=== PATIENT | male | born 1980 ===

== ENCOUNTER 2017-06-13 09:17 | Day surgery (SDC) | payer OTHER ==
[2017-06-13 09:45] VITALS: BMI 33.2
[2017-06-13] MEDS ORDERED: Propofol 10 mg/ml Inj (20 ML) ONE (12:38)
[2017-06-13] MEDS ORDERED: Midazolam 2 MG/2 ML VIAL ONE (12:38)
[2017-06-13 13:09] VITALS: TEMP 97.7
[2017-06-13 13:34] VITALS: RESP 13; O2SAT 99
[2017-06-13 13:39] VITALS: BP 131/74; PULSE 76
== END 2017-06-13 13:38 | disposition home or self-care (01) ==
LOC: C.ENDO 09:17
PROVIDERS: ATTEND Internal Medicine Gastroenterology
DX: K29.50 Unspecified chronic gastritis without bleeding (principal); K25.9 Gastric ulcer, unspecified as acute or chronic, without hemorrhage or perforation; K31.9 Disease of stomach and duodenum, unspecified; K21.9 Gastro-esophageal reflux disease without esophagitis; E66.9 Obesity, unspecified
CPT/HCPCS: 43239; 88305; 88312; 88342; J2250; J2704

== ENCOUNTER 2017-11-07 21:17 | Emergency (ER) | payer OTHER ==
[2017-11-07 21:18] VITALS: BMI 33.2
[2017-11-07] MEDS ORDERED: Sodium Chloride 0.9% 1,000 ML IV ONE (22:59)
--- NOTE | 2017-11-07 23:14 | C.PDOC ---
History Of Present Illness 37yo male, borderline diabetic, presents to ER with concerns for elevated blood sugar levels for the past week. Patient states he has been checking his blood sugar levels and noted it was in the 200's this morning; he additionally states he felt tingling sensation in his right face, causing him concern. He also reports he has been feeling increasingly tired, thirsty and has urinary frequency. He also reports episode of dyspepsia after which he panicked and came to the ER. He denies any abdominal pain or diarrhea. No other complaints. Time Seen by Provider: 11/07/17 22:50 Chief Complaint (Nursing): Dizziness/Lightheaded History Per: Patient History/Exam Limitations: no limitations Onset/Duration Of Symptoms: Days Current Symptoms Are (Timing): Still Present Past Medical History Reviewed: Historical Data, Nursing Documentation, Vital Signs Vital Signs: Last Vital Signs Temp 98.2 F 11/07/17 23:49 Pulse 75 11/07/17 23:49 Resp 18 11/07/17 23:49 BP 123/70 11/07/17 23:49 Pulse Ox 98 11/07/17 23:49 - Medical History PMH: No Chronic Diseases, Diabetes (borderline), Sleep Apnea (NO MACHINE) Denies: Chronic Kidney Disease Surgical History: Endoscopy Family History: States: No Known Family Hx - Social History Hx Tobacco Use: No Hx Alcohol Use: No Hx Substance Use: No Review Of Systems Except As Marked, All Systems Reviewed And Found Negative. Gastrointestinal: Positive for: Vomiting. Negative for: Abdominal Pain, Diarrhea Neurological: Positive for: Dizziness, Other (tingling sensation right face) Physical Exam - Physical Exam Appears: Non-toxic, No Acute Distress Skin: Normal Color Head: Normacephalic Eye(s): bilateral: Normal Inspection Neck: Normal ROM, Supple Chest: Symmetrical Cardiovascular: Rhythm Regular Respiratory: Normal Breath Sounds, No Wheezing Gastrointestinal/Abdominal: Normal Exam, Soft, No Tenderness Extremity: Normal ROM Neurological/Psych: Oriented x3, Normal Speech, Normal Cognition, Normal Cranial Nerves, Normal Motor, Normal Sensation, Normal Reflexes ED Course And Treatment - Laboratory Results Result Diagrams: 11/07/17 23:11 11/07/17 23:11 O2 Sat by Pulse Oximetry: 99 (RA) Pulse Ox Interpretation: Normal Medical Decision Making Medical Decision Making: Plan: -- Labs -- IV fluids -- Zofran 4mg IV Disposition - Disposition Disposition: HOME/ ROUTINE Disposition Time: 04:28 Condition: GOOD Prescriptions: Famotidine [Pepcid] 40 mg PO DAILY #14 tablet Instructions: Gastritis, Famotidine Forms: [facility] (Bur[place]ian) Print Language: HEBREW - Clinical Impression Clinical Impression: Dizziness, Dyspepsia - Scribe Statement The provider has reviewed the documentation as recorded by the Scribe (Nicol Vicente) Provider Attestation: All medical record entries made by the Scribe were at my direction and personally dictated by me. I have reviewed the chart and agree that the record accurately reflects my personal performance of the history, physical exam, medical decision making, and the department course for this patient. I have also personally directed, reviewed, and agree with the discharge instructions and disposition.
[2017-11-07 23:15] LABS: BASO # 0.2 K/uL (0.0-0.2); BASO % 2.8 % (0.0-2.0); EOS % 0.6 % (0.0-4.0); HEMOGLOBIN 17.5 g/dL (12.0-18.0); LYMPH # 1.4 K/uL (1.0-4.3); MEAN CELL VOLUME 87.4 fL (80.0-94.0); MEAN CORPUSCULAR HEMOGLOBIN 30.6 pg (27.0-31.0); MEAN CORPUSCULAR HGB CONC 35.1 g/dL (33.0-37.0); MEAN PLATELET VOLUME 10.9 fL (7.2-11.7); MONO # 0.8 K/uL (0.0-0.8); MONO % 13.8 % (0.0-10.0); NEUT # 3.2 K/uL (1.8-7.0); NEUT % 57.8 % (50.0-75.0); RBC 5.7 Mil/uL (4.40-5.90); RED CELL DISTRIBUTION WIDTH 13.2 % (11.5-14.5); WHITE BLOOD COUNT 5.6 K/uL (4.8-10.8)
[2017-11-07] MEDS ORDERED: Sodium Chloride 0.9% 1,000 ML ONE (23:21)
[2017-11-07 23:25] LABS: AMYLASE 69 U/L (30-110); CALCIUM 10.1 mg/dl (8.6-10.4); GFR AFRICAN-AMERICAN > 60; GFR NON-AFRICAN AMERICAN > 60; LIPASE 63 U/L (23-300)
[2017-11-07 23:30] LABS: ALBUMIN 5.1 g/dL (3.5-5.0); ALT/SGPT 100 U/L (21-72); AST/SGOT 74 U/L (17-59); BLOOD UREA NITROGEN 21 mg/dL (9-20)
[2017-11-07 23:50] VITALS: BP 123/70; PULSE 75; RESP 18; TEMP 98.2
[2017-11-08 04:29] VITALS: O2SAT 99
== END 2017-11-08 00:01 | disposition home or self-care (01) ==
LOC: C.ER 21:17
DX: R42 Dizziness and giddiness (principal); R10.13 Epigastric pain
CPT/HCPCS: 80053; 82150; 83690; 85025; 96361; 96374; 99285; J2405; J7040